=== PATIENT | female | born 1970 | race Caucasian/White ===

== ENCOUNTER 2019-12-26 15:01 | Emergency (ER) | payer OTHER, SELFPAY ==
--- NOTE | 2019-12-26 15:03 | ED.SKABFB ---
HPI - Skin/Abscess/Foreign Bdy General Chief complaint: Wound/Laceration Stated complaint: remove stitches Time Seen by Provider: 12/26/19 15:03 Source: patient and RN notes reviewed History of Present Illness HPI narrative: Patient is a 49-year-old female who presents the urgent care with complaints of a laceration to the left arm. Patient states that she is up-to-date on her tetanus shot. 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 Patient denies of any other acute complaints or injuries. No acute distress. Patient read the plan of care. Related Data Home Medications Medication Instructions Recorded Confirmed No Home Medications 12/26/19 12/26/19 Allergies Allergy/AdvReac Type Severity Reaction Status Date / Time No Known Allergies Allergy Verified 12/26/19 15:19 Review of Systems Review of Systems: Narrative: CONSTITUTIONAL: Denies fever, chills, or sweats. EYES: Denies visual changes, redness, or discharge. ENT: Denies rhinorrhea, congestion, sore throat, or otalgia. CARDIOVASCULAR: Denies chest pain, palpitations, or edema. RESPIRATORY: Denies cough or dyspnea. GASTROINTESTINAL: Denies abdominal pain, nausea, vomiting, or diarrhea. GENITOURINARY: Denies dysuria or hematuria. SKIN: Reports of a laceration to the left arm MUSCULOSKELETAL: Denies back pain, joint pain, or myalgia. NEUROLOGIC: Denies headache, numbness, or weakness. All other systems reviewed are negative, except as documented in HPI. PMFSH Comments At the time of my signature, I reviewed and agree with the nursing past medical, surgical, social, and family history. There is no relevant family history pertinent to the patient complaint. Exam Narrative: Exam Narrative: GENERAL: This is a well-nourished, well-developed patient, in no apparent distress. HEAD: normocephalic, atraumatic. EYES: PERRL. Sclera clear/white. Vision is grossly intact. EARS: External ears normal NOSE: External nose normal with no obvious nasal discharge THROAT: Mucous membranes moist NECK: Neck supple, non-tender without lymphadenopathy, masses or thyromegaly. SKIN: 1 cm in length by 0.5 cm with linear laceration to the left arm near the left AC. NEURO: awake, alert, and oriented to person, place and time. There were no obvious focal neurologic abnormalities. EXTREMITIES: No clubbing, cyanosis, or edema. Course Vital Signs Vital signs: Vital Signs Temperature 98.9 F 12/26/19 15:08 Pulse Rate 100 12/26/19 15:08 Respiratory Rate 16 12/26/19 15:08 Blood Pressure 118/76 12/26/19 15:08 Pulse Oximetry 100 12/26/19 15:08 Temperature 98.9 F 12/26/19 15:08 Pulse Rate 100 12/26/19 15:08 Respiratory Rate 16 12/26/19 15:08 Blood Pressure 118/76 12/26/19 15:08 Pulse Oximetry 100 12/26/19 15:08 Reviewed Procedures Laceration Laceration 1: Site: upper extremity (Left arm) Side (If applicable): left Size (cm): 1 Description: linear Depth: simple, single layer Local Anesthetic: lidocaine 1% Pre-repair: irrigated ====== Skin Level ====== ====== Subcutaneous Layer ====== Subcutaneous layer closed with: other (Ethilon) Size: 5-0 Number of sutures: 3 Technique: simple, interrupted ====== Muscle Layer ====== ====== Tendon Layer ====== Dressin Ethilon sutures placed to the left arm and near the AC for a 1 cm linear in length and 0.5 cm in width clean laceration. 1% lidocaine used, 1ml. Patient tolerated well. Wound irrigated with active care normal saline prior to suture. MDM - Skin/Abscess/Foreign Bdy MDM Narrative Medical decision making narrative: Advised the patient to keep the area very clean and free of debris. Be aware of signs and symptoms of infection to the laceration such as redness, swelling, pain. If the above symptoms occur make sure
[2019-12-26 15:08] VITALS: BP 118/76; PULSE 100; RESP 16; TEMP 37.2; O2SAT 100
== END 2019-12-26 15:34 | disposition home or self-care (01) ==
PROVIDERS: Emergency Provider Nurse Practitioner Family
DX: S41.112A Laceration without foreign body of left upper arm, initial encounter (principal); W27.0XXA Contact with workbench tool, initial encounter
CPT/HCPCS: 12001; 99212; G0463